=== PATIENT | male | born 1940 | race Caucasian/White ===

== ENCOUNTER 2017-12-02 12:39 | Observation (INO) ==
[2017-12-02] MEDS ORDERED: Morphine Inj 4 MG/ML Vial IV.PUSH ONE (13:39)
--- NOTE | 2017-12-02 13:47 | ED ---
HPI General Chief complaint: Abdominal Pain Stated complaint: abd pain/fever/elevated bp Time Seen by Provider: 12/02/17 16:20 Source: patient Mode of arrival: ambulatory Limitations: no limitations History of Present Illness HPI narrative: 77yo M with PMH of aortic aneurysm, depression, HTN was sent here from urgent care for further evaluation. Patient complains of pain from midchest down to mid abdomen since this morning. Said pain is severe, 10 out of 10. +Nausea. Pt also has neck pain radiating down to left shoulder since April and said he has a pinched nerve there. Denies any fever, cough, sob, vomiting, dysuria, hematuria, focal weakness or numbness. Related Data Home Medications Medication Instructions Recorded Confirmed aspirin 81 mg PO DAILY 12/02/17 12/02/17 doxazosin 8 mg PO DAILY 12/02/17 12/02/17 hydrocodone-acetaminophen 1 tab PO Q4-6H PRN 12/02/17 12/02/17 hrpwswwm-jzh-IL-lycopen-lutein 1 tab PO DAILY 12/02/17 12/02/17 [Centrum Silver] omeprazole 40 mg PO DAILY 12/02/17 12/02/17 paroxetine HCl 40 mg PO DAILY 12/02/17 12/02/17 simvastatin 40 mg PO QPM 12/02/17 12/02/17 tamsulosin 0.4 mg PO DAILY 12/02/17 12/02/17 zolpidem 10 mg PO HS 12/02/17 12/02/17 Previous Rx's Medication Instructions Recorded levofloxacin [Levaquin] 750 mg PO DAILY #7 tab 12/03/17 Allergies Allergy/AdvReac Type Severity Reaction Status Date / Time Tetanus Vaccines and Toxoid Allergy Intermediate Hives Verified 12/02/17 12:52 Review of Systems ROS: all other systems reviewed are negative [facility] Medical History Medical History Aortic aneurysm (Acute) Back pain (Acute) Depression (Acute) Hearing deficit (Acute) High cholesterol (Acute) Hx of deep venous thrombosis (Acute) Insomnia (Acute) Pinched nerve (Acute) Prostate enlargement (Acute) Surgical History Surgical History H/O neck surgery (Acute) History of bilateral knee replacement (Acute) History of tonsillectomy (Acute) Hx of cholecystectomy (Acute) Family History Family History Other Family history unknown Social History Social History Substance History: No History of Abuse Second Hand Smoke Exposure: No Smoking Status: Never smoker How Often Do You Have a Drink Containing Alcohol: Never Recent Travel in [facility] within the Last 8 Weeks: No Recent Out of Country Travel within the Last 8 Weeks: No Exam Narrative Exam Narrative: GENERAL: 77yo M in moderate distress. SKIN: Focused skin assessment warm/dry. HEAD: Atraumatic. Normocephalic. EYES: Pupils equal and round. No scleral icterus. No injection or drainage. ENT: No nasal bleeding or discharge. Mucous membranes pink and moist. NECK: Trachea midline. No JVD. CARDIOVASCULAR: Regular rate and rhythm. No murmur appreciated. RESPIRATORY: No accessory muscle use. Clear to auscultation. Breath sounds equal bilaterally. GASTROINTESTINAL: Abdomen soft, +TTP epigastric, mid abdomen and periumbilical region. No pulsating mass. No rebound tenderness or guarding. MUSCULOSKELETAL: No obvious deformities. No clubbing. No cyanosis. No edema. NEUROLOGICAL: Awake and alert. No obvious cranial nerve deficits. Motor grossly within normal limits in all extremities. Sensation equal bilaterally. Normal speech. PSYCHIATRIC: Appropriate mood and affect; insight and judgment normal. Procedures Ultrasound POC Ultrasound Procedure: US abdominal aortic performed with curvilinear probe. Epigastric abdominal aorta only mildly increased and no dissection seen. Course Reevaluation(s) Reevaluation #1: Patient reevaluated and has largely no abdominal pain at the present time. On presentation patient had epigastric pain that radiated to the left flank. The pain was constant of 1 hours duration at 7 out of 10 and then resolved to where it persisted at 3-4 out of 10 until the present time. Since receiving the morphine patient has no pain at this time. However on physical exam the patient does have right flank percussion tenderness; that is not consistent with his complain of epigastric pain radiating to his left flank. Patient will be admitted with a diagnosis of abdominal pain with history of aneurysm to rule out dissection. And also has a UTI and probably right pyelonephritis with a slight leukocytosis. Time: 16:49 Initial Documented Vital Signs Temperature 100.1 F H 12/02/17 12:49 Pulse Rate 92 H 12/02/17 12:49 Respiratory Rate 16 12/02/17 12:49 Blood Pressure 184/77 H 12/02/17 12:49 Pulse Oximetry 95 12/02/17 12:49 Last Documented Vital Signs Temperature 98.5 F 12/03/17 08:00 Pulse Rate 90 12/03/17 00:00 Respiratory Rate 21 12/03/17 08:00 Blood Pressure 122/57 L 12/03/17 08:00 Pulse Oximetry 96 12/03/17 08:00 Medical Decision Making MDM Narrative Medical decision making narrative: 77yo M with c/o pain from mid chest to mid abdomen today. Associated with nausea. Pt has chronic neck pain radiating to left shoulder for months. No new weakness or numbness. Pt is from [place] and is a poor historian. Said he has aortic aneurysm. Bedside US completed prior to CT scan and there is slightly enlarged aortic a little over 3cm but no dissection seen. Labs reviewed, WBC 11.9. H/H normal. Troponin negative. Bilirubin mildly increased at 1.7. Lipase low at 35. UA showed occasional WBC clumps. WBC 9-20. Pt now said he had dysuria today so will cover with ceftriaxone. CXR negative. Pt given morphine for pain. Pt now said he has no chest pain. Sign out to next team to follow up with CTA. Medical Screen Exam Complete: Yes Emergency Medical Condition: Yes Differential Diagnosis Differential Diagnosis: Aortic dissection vs. GERD vs. ACS vs. pancreatitis Lab Data Result diagrams: 12/02/17 13:54 12/02/17 13:54 Lab Results 12/02/17 12/02/17 12/02/17 Range/Units 13:44 13:54 13:54 CBC w Diff Slide review pending WBC 11.9 H (4.0-11.0) th/mm3 RBC 4.41 L (4.50-5.90) mil/mm3 Hgb 14.5 (13.0-17.0) gm/dL Hct 41.1 (39.0-51.0) % MCV 93.1 (80.0-100.0) fL MCH 33.0 (27.0-34.0) pg MCHC 35.4 (32.0-36.0) % RDW 13.1 (11.6-17.2) % Plt Count 201 (150-450) th/mm3 MPV 8.7 (7.0-11.0) fL WBC Differential Manual diff final Seg Neuts % (Manual) 89 H (16-70) % Band Neuts % (Manual) 2 (0-6) % Lymphocytes % (Manual) 4 L (9-44) % Monocytes % (Manual) 5 (0-8) % Abs Neuts (Manual) 10.8 H (1.8-7.7) th/mm3 Differential Comment . Platelet Estimate Normal (Normal) Platelet Morphology Normal (Normal) PT 10.7 (9.8-11.6) sec INR 1.1 Ratio APTT 26.7 (24.3-30.1) sec Sodium (136-145) meq/L Potassium (3.5-5.1) meq/L Chloride (98-107) meq/L Carbon Dioxide (21.0-32.0) meq/L Anion Gap (5-15) meq/L BUN (7-18) mg/dL Creatinine (0.60-1.30) mg/dL Estimated GFR (>89) mL/min Random Glucose (74-106) mg/dL Calcium (8.5-10.1) mg/dL Total Bilirubin (0.2-1.0) mg/dL AST (15-37) U/L ALT (12-78) U/L Alkaline Phosphatase (45-117) U/L Troponin I (0.02-0.05) ng/mL Total Protein (6.4-8.2) g/dL Albumin (3.4-5.0) g/dL Lipase (73-393) U/L Ur Collection Type Clean catch Urine Color Yellow (Yellw/Straw) Urine Clarity Clear (Clear) Urine pH 6.0 (5.0-8.5) Ur Specific [place] 1.010 (1.002-1.035) Urine Protein Negative (Neg-Trace) mg/dL Urine Glucose (UA) Negative (Negative) mg/dL Urine Ketones Negative (Negative) mg/dL Urine Occult Blood Negative (Negative) Urine Nitrate Negative (Negative) Urine Bilirubin Negative (Negative) Urine Urobilinogen 1.0 (Less than 2) mg/dL Ur Leukocyte Esterase Trace H (Negative) Urine RBC 0-3 (0-3) /hpf Urine WBC 9-20 H (0-5) /hpf Urine WBC Clumps Occasional H (None) Ur Squamous Epith Cells 0-5 (0-5) /hpf Micro UA Comment Culture indicated Ur Microscopic Review Microscopic reviewed Urine Culture Comments Culture indicated Blood Type Blood Type Recheck Antibody Screen 12/02/17 12/02/17 Range/Units 13:54 13:54 CBC w Diff WBC (4.0-11.0) th/mm3 RBC (4.50-5.90) mil/mm3 Hgb (13.0-17.0) gm/dL Hct (39.0-51.0) % MCV (80.0-100.0) fL MCH (27.0-34.0) pg MCHC (32.0-36.0) % RDW (11.6-17.2) % Plt Count (150-450) th/mm3 MPV (7.0-11.0) fL WBC Differential Seg Neuts % (Manual) (16-70) % Band Neuts % (Manual) (0-6) % Lymphocytes % (Manual) (9-44) % Monocytes % (Manual) (0-8) % Abs Neuts (Manual) (1.8-7.7) th/mm3 Differential Comment Platelet Estimate (Normal) Platelet Morphology (Normal) PT (9.8-11.6) sec INR Ratio APTT (24.3-30.1) sec Sodium 138 (136-145) meq/L Potassium 4.0 (3.5-5.1) meq/L Chloride 105 (98-107) meq/L Carbon Dioxide 26.9 (21.0-32.0) meq/L Anion Gap 6 (5-15) meq/L BUN 14 (7-18) mg/dL Creatinine 0.96 (0.60-1.30) mg/dL Estimated GFR 76 L (>89) mL/min Random Glucose 132 H (74-106) mg/dL Calcium 8.9 (8.5-10.1) mg/dL Total Bilirubin 1.7 H (0.2-1.0) mg/dL AST 27 (15-37) U/L ALT 28 (12-78) U/L Alkaline Phosphatase 90 (45-117) U/L Troponin I Less than 0.02 L (0.02-0.05) ng/mL Total Protein 7.1 (6.4-8.2) g/dL Albumin 4.0 (3.4-5.0) g/dL Lipase 35 L (73-393) U/L Ur Collection Type Urine Color (Yellw/Straw) Urine Clarity (Clear) Urine pH (5.0-8.5) Ur Specific [place] (1.002-1.035) Urine Protein (Neg-Trace) mg/dL Urine Glucose (UA) (Negative) mg/dL Urine Ketones (Negative) mg/dL Urine Occult Blood (Negative) Urine Nitrate (Negative) Urine Bilirubin (Negative) Urine Urobilinogen (Less than 2) mg/dL Ur Leukocyte Esterase (Negative) Urine RBC (0-3) /hpf Urine WBC (0-5) /hpf Urine WBC Clumps (None) Ur Squamous Epith Cells (0-5) /hpf Micro UA Comment Ur Microscopic Review Urine Culture Comments Blood Type A Positive Blood Type Recheck Required Antibody Screen Negative Imaging Data Radiologist's impression: Chest X-Ray 12/02/17 13:39 CONCLUSION: No acute disease Thoracic Aorta CT 12/02/17 13:39 CONCLUSION: 1. Aortic aneurysm. 2. No evidence for aortic dissection. ECG Data EKG Prior to Arrival: No Attestation: I personally reviewed and interpreted this ECG as follows: Interpretation: NSR 90bpm. WA interval 197ms. Normal axis. No significant ST elevatino or depression. Discharge Plan Discharge Disposition Patient Disposition: 30 Still Patient Discharge Condition Condition: Stable Discharge Order Discharge Orders: Discharge Order (Routine); Ordered 12/03/17 Ordered By: Alex Brannon Discharge Details Anticipated Discharge Date: 12/03/17 Physicians Team ED Provider: Jean-Paul Morrell Primary Care Provider: NON STAFF,PROVIDER Attending Provider: Jose Raphael Status ED Status: Left Department Discharge Information Discharge Date/Time: 12/02/17 18:19
[2017-12-02 14:06] LABS: Bilirubin,Urine Negative (Negative); Clarity,Urine Clear (Clear); Color,Urine Yellow (Yellw/Straw); Glucose,Urine (UA) Negative (Negative); Leukocyte Esterase,Urine Trace (Negative); Nitrite,Urine Negative (Negative)
[2017-12-02 14:11] LABS: Hematocrit 41.1 % (39.0-51.0); Hemoglobin 14.5 gm/dL (13.0-17.0); Mean Corpuscular HGB Conc 35.4 % (32.0-36.0); Mean Corpuscular Volume 93.1 fL (80.0-100.0); Mean Platelet Volume 8.7 fL (7.0-11.0); Platelet Count 201 th/mm3 (150-450); Red Blood Count 4.41 mil/mm3 (4.50-5.90); Red Cell Distribution Width 13.1 % (11.6-17.2); White Blood Count 11.9 th/mm3 (4.0-11.0)
[2017-12-02 14:11] LABS: RBC,Urine 0-3 /hpf (0-3)
[2017-12-02 14:12] LABS: Squamous Epithelial Cell,Urine 0-5 /hpf (0-5)
[2017-12-02 14:15] LABS: Chloride 105 meq/L (98-107); Sodium 138 meq/L (136-145)
--- NOTE | 2017-12-02 14:16 | XR ---
EXAM DATE: 12/02/2017 2:13 PM EDT AGE/SEX: 77 years / Male INDICATIONS: Chest abdominal pain, nausea, neck pain. CLINICAL DATA: This is the patient's initial encounter. Patient reports that signs and symptoms have been present for 1 day and indicates a pain score of 10/10. MEDICAL/SURGICAL HISTORY: Hypertension. Aortic aneurysm. None. COMPARISON: No prior exams available for comparison. FINDINGS: A single AP view of the chest demonstrates the lungs to be symmetrically aerated without evidence of mass, infiltrate or effusion. The cardiomediastinal contours are unremarkable. Osseous structures a re intact. CONCLUSION: No acute disease Electronically signed by: Joselito Weems MD 12/02/2017 2:15 PM EDT
[2017-12-02 14:18] LABS: Calcium 8.9 mg/dL (8.5-10.1)
[2017-12-02 14:19] LABS: Anion Gap 6 meq/L (5-15); Blood Urea Nitrogen 14 mg/dL (7-18); Carbon Dioxide 26.9 meq/L (21.0-32.0); Glucose,Random 132 mg/dL (74-106); Lipase 35 U/L (73-393)
[2017-12-02 14:21] LABS: Alanine Aminotransferase 28 U/L (12-78); Aspartate Aminotransferase 27 U/L (15-37)
[2017-12-02 14:22] LABS: Glomerular Filtration Rate 76 mL/min (>89)
[2017-12-02 14:23] LABS: Total Protein 7.1 g/dL (6.4-8.2)
[2017-12-02 14:24] LABS: Activated Partial Thrombo Time 26.7 sec (24.3-30.1); Alkaline Phosphatase 90 U/L (45-117); INR 1.1 Ratio; Prothrombin Time 10.7 sec (9.8-11.6)
[2017-12-02 14:55] LABS: Lymphocytes 4 % (9-44); Monocytes 5 % (0-8); Platelet Estimate Normal (Normal); Platelet Morphology Normal (Normal)
--- NOTE | 2017-12-02 15:32 | CT ---
EXAM DATE: 12/02/2017 3:11 PM EDT AGE/SEX: 77 years / Male INDICATIONS: Mid chest to mid abdominal pain. Nausea. Evaluate for dissection. CLINICAL DATA: This is the patient's initial encounter. Patient reports that signs and symptoms have been present for 1 day and indicates a pain score of 10/10. MEDICAL/SURGICAL HISTORY: Aneurysm, abdominal. Hypertension. None. RADIATION DOSE: 22.58 CTDI (mGy) COMPARISON: No prior exams available for comparison. TECHNIQUE: Volumetric scanning was performed using a multi-row detector CT scanner during bolus infu cece of 100 ml Omnipaque 350 (iohexol) nonionic water-soluble contrast as a single exam dose. The d onelia was post processed with a variety of visualization algorithms including full volume maximum inten sity projection, multi-planar sliding thin slab reformation, curved planar reformation, and surface r endering techniques. Using automated exposure control and adjustment of the mA and/or kV according t o patient size, radiation dose was kept as low as reasonably achievable to obtain optimal diagnostic quality images. DICOM format image data is available electronically for review and comparison. FINDINGS: Scattered atherosclerotic plaquing of the aorta is noted. There is no dissection. There is aneurysmal dilatation of the infrarenal abdominal aorta measuring 3.3 x 3.1 cm in AP transverse dimension on im age 89 of series 2. Kidneys, adrenals, spleen, pancreas, liver unremarkable. Pancreas is fatty repla atr. Cholecystectomy clips are noted. Urinary bladder and prostate unremarkable. There is moderate to severe diverticulosis of the sigmoid colon without evidence of acute diverticulitis. Lungs are clear . Prostate is prominent measuring 5.8 x 5 cm in transverse and AP dimension. CONCLUSION: 1. Aortic aneurysm. 2. No evidence for aortic dissection. Electronically signed by: Chintan Gomez MD 12/02/2017 3:31 PM EDT
[2017-12-02] MEDS ORDERED: Acetaminophen 325 MG Tablet PO PRN (16:46)
[2017-12-02] MEDS ORDERED: Bisacodyl 10 MG Supp RECTAL PRN (16:46)
[2017-12-02] MEDS: Sod Chloride 0.9% Inj 1,000 ML IV.CONT SCH (17:13)
--- NOTE | 2017-12-02 18:35 | P.HP ---
History of Present Illness Primary Care Physician: PROVIDER NON STAFF Chief Complaint: Abdominal pain History of Present Illness: 77-year-old male with known history of hyperlipidemia, abdominal aneurysm, benign prostatic hypertrophy, recurrent urinary tract infections who presented to the hospital at the request of urgent care. Patient had been feeling well and has been having abdominal pain in the upper abdomen. He went to urgent care center and had workup done and was told that they needed to go to an ER to get IV fluid and CAT scan. Patient came to the emergency department here at [facility] and had workup performed. Vital signs showed a low- grade fever, workup indicated laboratory studies to have a mildly elevated white count with left shift. Urinalysis showed a mild urinary tract infection. CT scan of the abdomen did indicate a aneurysm that measured 3.3 x 3.1 cm. Urinary bladder, prostate, kidneys, adrenals, spleen, pancreas, liver was unremarkable. It was recommended by the ER physician that the patient be observed in the hospital for further evaluation and management. Upon seeing the patient he is hungry, he has not ate all day. States abdominal pain has improved. He does have a headache. They indicate that he has not had a urinary tract infection quite some time. However this 1 came on quite suddenly. - Diagnosis (1) Abdominal pain (2) Urinary tract infection Review of Systems All other systems reviewed negative except as stated in HPI Gastrointestinal: Reports abdominal pain PMFSH - History History Provided By: Patient - Medical History Medical History: Medical History (Last Updated 12/02/17 @ 14:09 by Priyanka Delatorre RN) Aortic aneurysm Back pain Depression Hearing deficit High cholesterol Hx of deep venous thrombosis Insomnia Pinched nerve Prostate enlargement - Surgical History Surgical History: Surgical History (Last Updated 12/02/17 @ 14:09 by Priyanka Delatorre RN) H/O neck surgery History of bilateral knee replacement History of tonsillectomy Hx of cholecystectomy - Family History Family History: Family History (Last Updated 12/02/17 @ 18:24 by STANLEY Canales) Other Family history unknown - Tobacco History Second Hand Smoke Exposure: No Tobacco Use In Past 30 Days: No Smoking Status: Never smoker - Alcohol History How Often Do You Have a Drink Containing Alcohol: Never - Substance Use History Substance History: No History of Abuse - Travel History Recent Travel in the [facility] Within the Last 8 Weeks: No Recent Travel Out of the Country Within the Last 8 Weeks: No - Immunization History Tetanus Immunization: >5 Years Hx Influenza Vaccine This Season: Yes Medications and Allergies Active Medications: Active Medications Acetaminophen (Tylenol) 650 mg PO Q4H PRN PRN Reason: Headache, fever, pain 1-5 Al Hydroxide/Mg Hydroxide (Milk Of Magnesia Liq) 30 ml PO Q12H PRN PRN Reason: Mild Constipation Aspirin (Aspirin Chew) 81 mg PO DAILY [facility] Bisacodyl (Dulcolax Supp) 10 mg RECTAL DAILY PRN PRN Reason: SEVERE CONSITIPATION Sodium Chloride (Ns Inj) 1,000 mls @ 100 mls/hr IV.CONT .Q10H [facility] Last Admin: 12/02/17 17:13 Dose: 100 mls/hr Ceftriaxone Sodium 1,000 mg/ (Sodium Chloride) 100 mls @ 200 mls/hr IV.SIG Q24H [facility]YANA Lactulose (Lactulose Liq) 30 ml PO DAILY PRN PRN Reason: SEVERE CONSITIPATION Non-Formulary Medication (Doxazosin [Doxazosin]) 8 mg PO DAILY [facility] Non-Formulary Medication (Omeprazole [Omeprazole]) 40 mg PO DAILY [facility] Non-Formulary Medication (Paroxetine Hcl [Paroxetine Hcl]) 40 mg PO DAILY [facility] Non-Formulary Medication (Simvastatin [Simvastatin]) 40 mg PO QPM [facility] Ondansetron HCl (Zofran Inj) 4 mg IV.PUSH Q6H PRN PRN Reason: NAUSEA OR VOMITING Sennosides (Senokot) 17.2 mg PO Q12H PRN PRN Reason: Moderate Constipation Sodium Chloride (Ns Flush) 2 ml IV.FLUSH PRN PRN PRN Reason: FLUSH AFTER USING IV ACCESS Sodium Chloride (Ns Flush) 2 ml IV.FLUSH UNSCH PRN PRN Reason: FLUSH AFTER USING IV ACCESS Tamsulosin HCl (Flomax) 0.4 mg PO DAILY [facility] Zolpidem Tartrate (Ambien) 10 mg PO HS [facility] Allergies Allergy/AdvReac Type Severity Reaction Status Date / Time Tetanus Vaccines and Toxoid Allergy Intermediate Hives Verified 12/02/17 12:52 Home Medications Medication Instructions Recorded Confirmed Type aspirin 81 mg PO DAILY 12/02/17 12/02/17 History doxazosin 8 mg PO DAILY 12/02/17 12/02/17 History hydrocodone-acetaminophen 1 tab PO Q4-6H PRN 12/02/17 12/02/17 History yyalpxsw-gzi-VD-lycopen-lutein 1 tab PO DAILY 12/02/17 12/02/17 History [Centrum Silver] omeprazole 40 mg PO DAILY 12/02/17 12/02/17 History paroxetine HCl 40 mg PO DAILY 12/02/17 12/02/17 History simvastatin 40 mg PO QPM 12/02/17 12/02/17 History tamsulosin 0.4 mg PO DAILY 12/02/17 12/02/17 History zolpidem 10 mg PO HS 12/02/17 12/02/17 History Exam Vital signs: Vital Signs 12/02/17 12:49 12/02/17 13:35 12/02/17 13:39 Temperature 100.1 F H Pulse Rate 92 H 88 Pulse Rate [Radial] 88 Respiratory Rate 16 18 Blood Pressure 184/77 H Blood Pressure [Left Arm] 148/72 H Blood Pressure [Right Arm] 154/65 H Pulse Oximetry 95 90 L 12/02/17 13:54 12/02/17 15:17 12/02/17 17:27 Temperature Pulse Rate 88 87 Pulse Rate [Radial] Respiratory Rate 18 18 Blood Pressure 141/68 H 136/64 Blood Pressure [Left Arm] Blood Pressure [Right Arm] Pulse Oximetry 98 96 96 Intake & Output 12/01/17 12/02/17 12/02/17 18:59 06:59 18:59 Intake Total 100 / 100 Balance 100 / 100 Weight 125.3 kg Intake: IV 100 / 100 Rocephin Inj 1,000 MG In NS Inj 100 / 100 100 ML @ 200 mls/hr IV.SIG ONCE ONE Rx#:[id number] Narrative: GENERAL: Well-developed, well-nourished, in no acute distress. alert and orientated HEENT: Head is normocephalic without any lesions or masses noted. Facial features are symmetric. Eyes: Pupils equal round reactive to light. Extraocular muscles are intact. Conjunctivae were clear. Oropharyngeal: Pharynx without any erythema edema. Tongue is midline without deviation. Buccal mucosa is moist without any masses or lesions NECK: Supple without any masses. Trachea midline no deviation. No JVD, no bruits are appreciated CARDIAC: Regular rhythm, regular rate. S1/S2 are heard. No murmurs gallops or rubs. LUNGS: Clear to auscultation bilaterally. No wheeze, rhonchi or rales. No use of accessory muscles on inspiration or expiration. ABDOMEN: Soft, nontender. Nondistended. Bowel sounds heard in all 4 quadrants. No organomegaly or masses. Negative rebound, negative guarding EXTREMITIES: No edema, pulses are equal bilaterally. No cyanosis or clubbing NEUROLOGY: Mood and affect appear appropriate. Cranial nerves II through XII grossly intact. Muscle strength 5/5 in upper and lower extremities bilaterally. Deep tendon reflexes are 2+ in upper and lower extremities bilaterally. Results - Labs CBC & Chem 7: 12/02/17 13:54 12/02/17 13:54 Labs: Laboratory Results - last 24 hr 12/02/17 12/02/17 12/02/17 13:44 13:54 13:54 CBC w Diff Slide review pending WBC 11.9 H RBC 4.41 L Hgb 14.5 Hct 41.1 MCV 93.1 MCH 33.0 MCHC 35.4 RDW 13.1 Plt Count 201 MPV 8.7 WBC Differential Manual diff final Seg Neuts % (Manual) 89 H Band Neuts % (Manual) 2 Lymphocytes % (Manual) 4 L Monocytes % (Manual) 5 Abs Neuts (Manual) 10.8 H Differential Comment . Platelet Estimate Normal Platelet Morphology Normal PT 10.7 INR 1.1 APTT 26.7 Sodium Potassium Chloride Carbon Dioxide Anion Gap BUN Creatinine Estimated GFR Random Glucose Calcium Total Bilirubin AST ALT Alkaline Phosphatase Troponin I Total Protein Albumin Lipase Ur Collection Type Clean catch Urine Color Yellow Urine Clarity Clear Urine pH 6.0 Ur Specific [place] 1.010 Urine Protein Negative Urine Glucose (UA) Negative Urine Ketones Negative Urine Occult Blood Negative Urine Nitrate Negative Urine Bilirubin Negative Urine Urobilinogen 1.0 Ur Leukocyte Esterase Trace H Urine RBC 0-3 Urine WBC 9-20 H Urine WBC Clumps Occasional H Ur Squamous Epith Cells 0-5 Micro UA Comment Culture indicated Ur Microscopic Review Microscopic reviewed Urine Culture Comments Culture indicated Blood Type Blood Type Recheck Antibody Screen 12/02/17 12/02/17 13:54 13:54 CBC w Diff WBC RBC Hgb Hct MCV MCH MCHC RDW Plt Count MPV WBC Differential Seg Neuts % (Manual) Band Neuts % (Manual) Lymphocytes % (Manual) Monocytes % (Manual) Abs Neuts (Manual) Differential Comment Platelet Estimate Platelet Morphology PT INR APTT Sodium 138 Potassium 4.0 Chloride 105 Carbon Dioxide 26.9 Anion Gap 6 BUN 14 Creatinine 0.96 Estimated GFR 76 L Random Glucose 132 H Calcium 8.9 Total Bilirubin 1.7 H AST 27 ALT 28 Alkaline Phosphatase 90 Troponin I Less than 0.02 L Total Protein 7.1 Albumin 4.0 Lipase 35 L Ur Collection Type Urine Color Urine Clarity Urine pH Ur Specific [place] Urine Protein Urine Glucose (UA) Urine Ketones Urine Occult Blood Urine Nitrate Urine Bilirubin Urine Urobilinogen Ur Leukocyte Esterase Urine RBC Urine WBC Urine WBC Clumps Ur Squamous Epith Cells Micro UA Comment Ur Microscopic Review Urine Culture Comments Blood Type A Positive Blood Type Recheck Required Antibody Screen Negative - Imaging Impressions Chest X-Ray 12/02/17 13:39 CONCLUSION: No acute disease Thoracic Aorta CT 12/02/17 13:39 CONCLUSION: 1. Aortic aneurysm. 2. No evidence for aortic dissection. Caprini VTE Risk Assessment Caprini VTE Risk Assessment: Moderate/High Risk (score >= 2) Caprini Risk Assessment Model: Point Value = 1 Point Value = 2 Point Value = 3 Point Value = 5 Age 41-60 Minor surgery BMI > 25 kg/m2 Swollen legs Varicose veins or History of unexplained or recurrent spontaneous Oral contraceptives or hormone replacement Sepsis (< 1 month) Serious lung disease, including pneumonia (< 1 month) Abnormal pulmonary function Acute myocardial infarction Congestive heart failure (< 1 month) History of inflammatory bowel disease Medical patient at bed rest Age 61-74 Arthroscopic surgery Major open surgery (> 45 min) Laparoscopic surgery (> 45 min) Malignancy Confined to bed (> 72 hours) Immobilizing plaster cast Central venous access Age >= 75 History of VTE Family history of VTE Factor V Leiden Prothrombin [id number] Lupus anticoagulant Anticardiolipin antibodies Elevated serum homocysteine Heparin-induced thrombocytopenia Other congenital or acquired thrombophilia Stroke (< 1 month) Elective arthroplasty Hip, pelvis, or leg fracture Acute spinal cord injury (< 1 month) Prophylaxis Regimen: Total Risk Factor Score Risk Level Prophylaxis Regimen 0-1 Low Early ambulation 2 Moderate Order ONE of the following: *Sequential Compression Device (SCD) *Heparin 5000 units SQ BID 3-4 Higher Order ONE of the following medications: *Heparin 5000 units SQ TID *Enoxaparin/Lovenox 40 mg SQ daily (WT < 150 kg, CrCl > 30 mL/min) *Enoxaparin/Lovenox 30 mg SQ daily (WT < 150 kg, CrCl > 10-29 mL/min) *Enoxaparin/Lovenox 30 mg SQ BID (WT < 150 kg, CrCl > 30 mL/min) AND/OR *Sequential Compression Device (SCD) 5 or more Highest Order ONE of the following medications: *Heparin 5000 units SQ TID (Preferred with Epidurals) *Enoxaparin/Lovenox 40 mg SQ daily (WT < 150 kg, CrCl > 30 mL/min) *Enoxaparin/Lovenox 30 mg SQ daily (WT < 150 kg, CrCl > 10-29 mL/min) *Enoxaparin/Lovenox 30 mg SQ BID (WT < 150 kg, CrCl > 30 mL/min) AND *Sequential Compression Device (SCD) Assessment and Plan - Assessment (1) Abdominal pain Code(s): R10.9 - Unspecified abdominal pain Status: Acute (2) Urinary tract infection Code(s): N39.0 - Urinary tract infection, site not specified Status: Acute - Plan Urinary tract infection -Possible early sepsis/pyelonephritis with mild leukocytosis with left shift, low-grade fever -Patient started on Rocephin IV -Continue to follow the urine culture for appropriate antibiotics -Continue IV fluids Benign prostatic hypertrophy -Continue home medications History abdominal aneurysm -CT scan does not indicate any significant dilatation requiring intervention DVT prevention -Sequential compression devices
[2017-12-03 01:17] VITALS: PULSE 90
[2017-12-03] MEDS: Sod Chloride 0.9% Inj 1,000 ML IV.CONT SCH (02:34)
[2017-12-03 08:33] VITALS: BP 122/57; RESP 21; TEMP 98.5; O2SAT 96
--- NOTE | 2017-12-03 08:48 | P.PN ---
Subjective Interval history: 77-year-old male who is seen and examined today for follow-up on urinary tract infection. Patient states that he is doing better. Denies any more pain. States that he was up urinating all night. Vital signs are stable. Patient did have fever last evening, patient is afebrile at this time. Physical Exam Vital signs: Vital Signs 12/02/17 12:49 12/02/17 13:35 12/02/17 13:39 Temperature 100.1 F H Pulse Rate 92 H 88 Pulse Rate [Radial] 88 Respiratory Rate 16 18 Blood Pressure 184/77 H Blood Pressure [Left Arm] 148/72 H Blood Pressure [Right Arm] 154/65 H Pulse Oximetry 95 90 L 12/02/17 13:54 12/02/17 15:17 12/02/17 17:27 Temperature Pulse Rate 88 87 Pulse Rate [Radial] Respiratory Rate 18 18 Blood Pressure 141/68 H 136/64 Blood Pressure [Left Arm] Blood Pressure [Right Arm] Pulse Oximetry 98 96 96 12/02/17 18:30 12/03/17 00:00 12/03/17 08:00 Temperature 101.6 F H 101.6 F H 98.5 F Pulse Rate 85 90 Pulse Rate [Radial] Respiratory Rate 20 18 21 Blood Pressure 152/70 H 126/57 L 122/57 L Blood Pressure [Left Arm] Blood Pressure [Right Arm] Pulse Oximetry 97 95 96 Intake & Output 12/02/17 12/03/17 12/03/17 18:59 06:59 18:59 Intake Total 100 / 100 2300 / 2300 Output Total 400 / 400 Balance 100 / 100 1900 / 1900 Weight 123.6 kg Intake: IV 100 / 100 2100 / 2100 NS Inj 1,000 ML @ 100 mls/hr IV 1999 / 1999 .CONT .Q10H DYANA Rx#:[id number] Rocephin Inj 1,000 MG In NS Inj 100 / 100 100 / 100 100 ML @ 200 mls/hr IV.SIG Q24H DYANA Rx#:[id number] Oral 200 / 200 Output: Urine 400 / 400 Other: Weight On Admission 123.6 kg Narrative: GENERAL: Well-developed, well-nourished, in no acute distress. alert and orientated HEENT: Head is normocephalic without any lesions or masses noted. Facial features are symmetric. Eyes:Extraocular muscles are intact. Conjunctivae were clear. NECK: Supple without any masses. Trachea midline no deviation. No JVD, CARDIAC: Regular rhythm, regular rate. S1/S2 are heard. No murmurs gallops or rubs. LUNGS: Clear to auscultation bilaterally. No wheeze, rhonchi or rales. No use of accessory muscles on inspiration or expiration. ABDOMEN: Soft, nontender. Nondistended. Bowel sounds heard in all 4 quadrants. No organomegaly or masses. Negative rebound, negative guarding EXTREMITIES: No edema, pulses are equal bilaterally. No cyanosis or clubbing NEUROLOGY: Mood and affect appear appropriate. Cranial nerves II through XII grossly intact. Results - Labs CBC & Chem 7: 12/02/17 13:54 12/02/17 13:54 Laboratory Results - last 24 hr 12/02/17 12/02/17 12/02/17 13:44 13:54 13:54 CBC w Diff Slide review pending WBC 11.9 H RBC 4.41 L Hgb 14.5 Hct 41.1 MCV 93.1 MCH 33.0 MCHC 35.4 RDW 13.1 Plt Count 201 MPV 8.7 WBC Differential Manual diff final Seg Neuts % (Manual) 89 H Band Neuts % (Manual) 2 Lymphocytes % (Manual) 4 L Monocytes % (Manual) 5 Abs Neuts (Manual) 10.8 H Differential Comment . Platelet Estimate Normal Platelet Morphology Normal PT 10.7 INR 1.1 APTT 26.7 Sodium Potassium Chloride Carbon Dioxide Anion Gap BUN Creatinine Estimated GFR Random Glucose Calcium Total Bilirubin AST ALT Alkaline Phosphatase Troponin I Total Protein Albumin Lipase Ur Collection Type Clean catch Urine Color Yellow Urine Clarity Clear Urine pH 6.0 Ur Specific [place] 1.010 Urine Protein Negative Urine Glucose (UA) Negative Urine Ketones Negative Urine Occult Blood Negative Urine Nitrate Negative Urine Bilirubin Negative Urine Urobilinogen 1.0 Ur Leukocyte Esterase Trace H Urine RBC 0-3 Urine WBC 9-20 H Urine WBC Clumps Occasional H Ur Squamous Epith Cells 0-5 Micro UA Comment Culture indicated Ur Microscopic Review Microscopic reviewed Urine Culture Comments Culture indicated Blood Type Blood Type Recheck Antibody Screen 12/02/17 12/02/17 13:54 13:54 CBC w Diff WBC RBC Hgb Hct MCV MCH MCHC RDW Plt Count MPV WBC Differential Seg Neuts % (Manual) Band Neuts % (Manual) Lymphocytes % (Manual) Monocytes % (Manual) Abs Neuts (Manual) Differential Comment Platelet Estimate Platelet Morphology PT INR APTT Sodium 138 Potassium 4.0 Chloride 105 Carbon Dioxide 26.9 Anion Gap 6 BUN 14 Creatinine 0.96 Estimated GFR 76 L Random Glucose 132 H Calcium 8.9 Total Bilirubin 1.7 H AST 27 ALT 28 Alkaline Phosphatase 90 Troponin I Less than 0.02 L Total Protein 7.1 Albumin 4.0 Lipase 35 L Ur Collection Type Urine Color Urine Clarity Urine pH Ur Specific [place] Urine Protein Urine Glucose (UA) Urine Ketones Urine Occult Blood Urine Nitrate Urine Bilirubin Urine Urobilinogen Ur Leukocyte Esterase Urine RBC Urine WBC Urine WBC Clumps Ur Squamous Epith Cells Micro UA Comment Ur Microscopic Review Urine Culture Comments Blood Type A Positive Blood Type Recheck Required Antibody Screen Negative - Imaging Impressions Chest X-Ray 12/02/17 13:39 CONCLUSION: No acute disease Thoracic Aorta CT 12/02/17 13:39 CONCLUSION: 1. Aortic aneurysm. 2. No evidence for aortic dissection. - Procedures None Assessment and Plan - Assessment (1) Abdominal pain Code(s): R10.9 - Unspecified abdominal pain Status: Acute (2) Urinary tract infection Code(s): N39.0 - Urinary tract infection, site not specified Status: Acute - Plan Urinary tract infection -Possible early sepsis/pyelonephritis with mild leukocytosis with left shift, low-grade fever -Continue on Rocephin IV -Continue to follow the urine culture for appropriate antibiotics -Continue IV fluids Benign prostatic hypertrophy -Continue home medications History abdominal aneurysm -CT scan does not indicate any significant dilatation requiring intervention DVT prevention -Sequential compression devices Discharge Planning: Discharge home in stable condition Activity: Ad mirna. Diet: Healthy heart diet Medication per medication reconciliation Follow-up with primary medical doctor in 1 week
[2017-12-03] MEDS ORDERED: Doxazosin 4 MG Tablet PO SCH (09:00)
--- NOTE | 2017-12-03 10:45 | ECG ---
Date Performed: 12/02/2017 Time Performed: 13:49:25 PTAGE: 77 years EKG: Sinus rhythm NORMAL ECG NO PREVIOUS TRACING DOCTOR: Rey Blakely Interpretating Date/Time 12/03/2017 10:43:24
== END 2017-12-03 11:27 | disposition home or self-care (01) ==
LOC: PHED 12:39 → PHEDA 12:39 → PH3 18:11
PROVIDERS: ADMIT Hospitalist; ATTEND Hospitalist
DX: M54.2 Cervicalgia; I10 Essential (primary) hypertension; Z79.899 Other long term (current) drug therapy; I71.9 Aortic aneurysm of unspecified site, without rupture; N39.0 Urinary tract infection, site not specified; M79.622 Pain in left upper arm; N40.0 Benign prostatic hyperplasia without lower urinary tract symptoms; M54.9 Dorsalgia, unspecified; I70.0 Atherosclerosis of aorta; G58.9 Mononeuropathy, unspecified; G47.00 Insomnia, unspecified; F32.9 Major depressive disorder, single episode, unspecified; B96.20 Unspecified Escherichia coli [E. coli] as the cause of diseases classified elsewhere; Z79.82 Long term (current) use of aspirin; Z86.718 Personal history of other venous thrombosis and embolism; E78.00 Pure hypercholesterolemia, unspecified